=== PATIENT | male | born 1945 | race Caucasian/White ===

== ENCOUNTER 2017-05-10 08:25 | Day surgery (SDC) | payer OTHER, BC ==
[2017-04-25 12:22] VITALS: BMI 24.5
--- NOTE | 2017-05-09 09:24 | HP ---
Satellite [facility] - Chief Complaint Chief Complaint: right knee pain - Past Medical History Allergies/Adverse Reactions: Allergies Allergy/AdvReac Type Severity Reaction Status Date / Time No Known Allergies Allergy Verified 04/25/17 12:01 - Current Medications Current Medications: Home Medications Medication Instructions Recorded Atenolol [Tenormin] 25 mg PO DAILY 04/25/17 Glucosamine/D3/Boswellia Rossana 1 each PO DAILY 04/25/17 [Osteo Bi-Flex Tablet] Losartan Potassium 25 mg PO DAILY 04/25/17 Multivit-Mins/Iron/Folic/Lycop 1 each PO DAILY 04/25/17 [Centrum Men's Tablet] [place]-3 Fatty Acids/Fish Oil [Fish 1 each PO DAILY 04/25/17 Oil 1,000 mg Capsule] Satellite Physical Exam - Physical Examination General Appearance: Well Nourished, Well Developed, Alert & Oriented x3 ENT: Clear Lung: Normal air movement Heart: Regular rate & rhythm Extremities: Other (right knee- +swelling, + ttp medially, decr rom, nvi xrays show grade 4 medial djd) Neurological: Intact, Alert, Oriented Satellite Impression/Plan - Impression/Plan Impression: right knee medial djd Operative Procedure: right medial kimberley ukr Date to be Performed: 05/10/17
[2017-05-10] MEDS ORDERED: GABAPENTIN 300 MG CAPSULE (FP) PO ONE (08:44)
[2017-05-10] MEDS ORDERED: oxyCODONE HCL 10 MG SUSTAINED ACTING TABLET PO ONE (08:44)
[2017-05-10] MEDS ORDERED: CELECOXIB 200 MG CAPSULE PO ONE (08:44)
[2017-05-10] MEDS ORDERED: TRANEXAMIC ACID 1000 MG/10 ML VIAL IVPUSH ONE (08:44)
[2017-05-10] MEDS ORDERED: CEFAZOLIN 2 GM in DEXTROSE 5%-WATER - 50 ML IVPB ONE (08:44)
[2017-05-10] MEDS ORDERED: ROPIVICAINE 0.2%/MORPH PF/KETOROLAC - 51ML DISP.SYRINGE IA ONE ×2 (08:44→10:35)
[2017-05-10] MEDS ORDERED: ONDANSETRON 4 MG/2 ML VIAL ONE (10:33)
[2017-05-10] MEDS ORDERED: DEXAMETHASONE SOD PHOSPHATE 4 MG/1 ML VIAL ONE ×2 (10:33→10:44)
[2017-05-10] MEDS ORDERED: ceFAZolin SODIUM 1 GM VIAL ONE ×2 (10:34→11:47)
[2017-05-10] MEDS ORDERED: PROPOFOL 20 ML ONE (10:34)
[2017-05-10] MEDS ORDERED: THROMBIN (BOVINE) 5,000 UNIT VIAL TP ONE (10:34)
[2017-05-10] MEDS ORDERED: MIDAZOLAM HCL 2 MG/2 ML SINGLE DOSE VIAL ONE (10:43)
[2017-05-10] MEDS ORDERED: ROPIVACAINE HCL 0.5% 30ML VIAL ONE (10:43)
[2017-05-10] MEDS ORDERED: DEXAMETHASONE SOD PHOSPHATE/PF 10 MG/ML SDV ONE (10:48)
[2017-05-10] MEDS ORDERED: TRANEXAMIC ACID 1000 MG/10 ML VIAL ONE (11:55)
[2017-05-10] MEDS ORDERED: oxyCODONE HCL 5 MG TABLET PO PRN (12:50)
[2017-05-10] MEDS ORDERED: ONDANSETRON 4 MG/2 ML VIAL IVPUSH PRN ×2 (12:50→13:21)
[2017-05-10] MEDS ORDERED: LACTATED RINGERS SOLUTION 1,000 ML IV SCH ×2 (13:00→13:30)
[2017-05-10] MEDS ORDERED: ACETAMINOPHEN 325 MG TABLET (FP) PO SCH (13:00)
[2017-05-10] MEDS ORDERED: MAG HYDROX/AL HYDROX/SIMETH 30 ML UNIT-DOSE CUP PO PRN (13:21)
--- NOTE | 2017-05-10 13:23 | OP ---
Operative Note - Note: Operative Date: 05/10/17 (kacy) Pre-Operative Diagnosis: right knee medial djd Operation: right medial kimberley ukr Post-Operative Diagnosis: Same as Pre-op Surgeon: Brock Holguin Flight Information Expediter: Elia Simpson Anesthesiologist/ELECTRICAL ENGINEERING DESIGNER: Pam Vega Anesthesia: Spinal, Local Specimens Removed: bone fragments Estimated Blood Loss (mls): 150 Operative Report Dictated: Yes
--- NOTE | 2017-05-10 13:54 | SPEC ---
DATE OF OPERATION: 05/10/2017 PREOPERATIVE DIAGNOSIS: Degenerative joint disease, right knee. POSTOPERATIVE DIAGNOSIS: Degenerative joint disease, right knee. PROCEDURE: Right medial unicompartmental knee replacement with robotic-assisted navigation (MAKOplasty) and patelloplasty. SURGICAL ATTENDING: Brock Holguin MD TOY DESIGNER: ERIKA Ernst ANESTHESIA: Regional and spinal. CLOSURE: Medial DMITRI components with a 6 femur, 8 tibia, and an 8 polyethylene; No. 1 Vicryl, fascia; 0 and 2-0, subcutaneous; 3-0 Monocryl subcuticular with skin glue for skin; 4-0 undyed Vicryl for pin sites. ESTIMATED BLOOD LOSS: Negligible. COMPLICATIONS: None. CONDITION: To recovery in stable condition. DESCRIPTION OF OPERATIVE PROCEDURE: Patient was taken to the operating room on May 10, 2017. Spinal and regional anesthesia was administered by the anesthesiologist. IV Kefzol and TXA were administered prophylactically prior to the case. A well-padded pneumatic tourniquet was placed on the right proximal thigh. The right lower extremity was prepped and draped in the usual sterile fashion. A 6- to 8-cm longitudinal incision over the medial side of the patella from mid patella to the tibial tubercle was incised and was deepened using Bovie cautery. An arthrotomy was then made just medial to the patellar tendon and the patella. Subperiosteal dissection was done on the anteromedial proximal tibia all the way back to the MCL. Partial fat pad excision was performed, exposing the medial compartment. Checkpoint was malleable at both the femur and the tibia. Using 2 stab incisions in the femur 1 handbreadth above the patella on the femur and 2 stab incisions 1 handbreadth below the tibial tubercle on the tibia, 2 threaded pins were drilled in parallel fashion from anterior to posterior, going through the proximal cortex and engaging the 2nd but not through the 2nd cortex. To these threaded pins were fastened navigation rays, 1 on the femur and 1 on the tibia. The knee was then registered with the navigation device with the center of the rotation of the hip, medial and lateral malleoli, and multiple points both on the femur and on the tibia. Excellent registration of less than 0.5 mm was obtained on both to ensure adequate registration. The navigation device ensured us to "pop the bubbles" both on the femur and the tibia and that was performed and passed registration. The knee was then thoroughly inspected to remove all osteophytes both on the femur and the tibia. Also, osteophytes on the trochlea and on the surface of the patella were removed as well. The knee was then stressed with valgus stress at 0, 30, 60, 90, and 120 degrees of flexion. This propagated a looseness/tightness graft. The virtual positions of the components were then optimized to ensure an excellent graft. The tracking also was optimized by manipulating the virtual position to ensure that the femoral component articulated with the central portion of the tibial component. The robot was then brought into the field and was registered. The robot was used to bur the bone on both the femur and the tibia as to the specifications of the components. The trial components were then applied on both the femur and the tibia with an appropriate polyethylene insert. The knee was taken through a range of motion and found to have full extension, full flexion, with excellent stability. Stressing the graft revealed an excellent looseness/tightness graft with the trial components in place. The trial components were removed. The knee was thoroughly irrigated with a copious amount of antibiotic irrigation. The real components were then cemented in using modern generation cement techniques with antibiotic cement and pressurization. After the cement was hardened, the knee was thoroughly inspected to remove out all excess cement. The real polyethylene insert was then clipped into place. Range of motion and stability were again assessed to be as they were with the trials. At this time, the pins and the checkpoints were removed. The knee was again thoroughly irrigated. The arthrotomy was closed with No. 1 Vicryl, 0 and 2-0 subcutaneous, and 3-0 Monocryl subcuticular with skin glue for the skin, 4-0 undyed Vicryl for the pin sites. Sterile pressure dressing was placed over the knee. Patient awakened from anesthesia and transferred to recovery in stable condition. No complications. Estimated blood loss negligible. X-rays postoperatively revealed excellent position of the components. Mirza [id number]
[2017-05-10] MEDS: oxyCODONE HCL 5 MG TABLET PO PRN ×2 (15:38→21:16)
[2017-05-10] MEDS: ACETAMINOPHEN 325 MG TABLET (FP) PO SCH (20:17)
[2017-05-10] MEDS: GABAPENTIN 300 MG CAPSULE (FP) PO SCH (21:16)
[2017-05-10] MEDS: oxyCODONE HCL 10 MG SUSTAINED ACTING TABLET PO SCH (21:16)
[2017-05-10] MEDS: SENNOSIDES/DOCUSATE COMBO (SENNA PLUS) TABLET (UD) PO SCH (21:16)
[2017-05-10] MEDS: CEFAZOLIN 2 GM/D5W 2 GM/50 ML ML IVPB SCH (21:17)
[2017-05-10] MEDS ORDERED: LOSARTAN POTASSIUM 25 MG TABLET PO SCH (22:00)
[2017-05-11] MEDS: ACETAMINOPHEN 325 MG TABLET (FP) PO SCH ×2 (02:00→08:13)
[2017-05-11] MEDS: CEFAZOLIN 2 GM/D5W 2 GM/50 ML ML IVPB SCH (04:00)
[2017-05-11] MEDS: oxyCODONE HCL 5 MG TABLET PO PRN (05:28)
[2017-05-11 07:00] VITALS: BP 125/75; PULSE 55; TEMP 98.4
[2017-05-11] MEDS ORDERED: ASPIRIN 325 MG TABLET PO SCH (08:00)
--- NOTE | 2017-05-11 08:50 | PN ---
Progress Note (short form) - Note Progress Note: Ortho Pt seen and examined s/p right medial kimberley ukr pod #1 Selected Entries 05/11/17 06:00 Temperature 98.4 F Pulse Rate 55 L Respiratory 18 Rate Blood Pressure 125/75 dressing c/d/i, calf soft, nt rom 0-90, nvi a/p PT dvt ppx pain control d/c home today f/u in 1 week
--- NOTE | 2017-05-11 08:51 | DS ---
Physical Examination Vital Signs: Vital Signs Temperature 98.4 F 05/11/17 06:00 Pulse Rate 55 L 05/11/17 06:00 Respiratory Rate 18 05/11/17 06:00 Blood Pressure 125/75 05/11/17 06:00 O2 Sat by Pulse Oximetry (%) 98 05/11/17 06:00 Discharge Summary Reason For Visit: OSTEOARTHRITIS Procedures: Principal: s/p right medial kimberley ukr Hospital Course: admitted for elective right medial kimberley ukr, uneventful post-op, stable for d/c Condition: Good - Instructions Diet, Activity, Other Instructions: Post-op Instructions-Partial Knee Replacement Call the office for a follow-up appointment in 1 week - [phone] Aspirin 325mg daily for 6 weeks. Pain medication was sent into your pharmacy. Apply Graduated Compression Stockings (TEDs) to both lower extremities- remove daily for hygiene ONLY Apply Sequential Compression Device (SCDs) to both Lower extremities remove for PT and hygiene ONLY Apply cold packs to affected area for 15 minutes every 2 hours. Physical Therapist will come to your home for the first 5 days. You will be set up with outpatient PT at your first post-operative visit. Patient may ambulate as tolerated-encourage self care (at least every 2-3 hours while awake) with walker or cane Maintain Aquacel (waterproof) dressing to operative wound (will be removed by surgeon at first office visit) Shower with Aquacel dressing in place-if Aquacel integrity compromised, remove and apply dry sterile dressing and notify Orthopedist. DO NOT SHOWER unless Orthopedists approves without Aquacel dressing CONTACT THE OFFICE FOR ANY CHANGE IN YOUR CONDITION (for example-fever greater than 102 degrees, excessive bleeding from operative site, purulent drainage, severe swelling or pain) GO TO THE EMERGENCY ROOM IF THERE IS A MEDICAL EMERGENCY Knee Precautions: * Keep a rolled towel under affected heel while in bed or chair (to keep knee in extension) * Keep affected leg elevated except during mealtimes * DO NOT PLACE PILLOW UNDER AFFECTED KNEE * If you have any questions, please do not hesitate to call the office - . Referrals: Brock Holguin MD [Staff Physician] - Disposition: VNS/HOME HEALTH CARE - Home Medications Comprehensive Discharge Medication List: Ambulatory Orders Atenolol [Tenormin] 25 mg PO DAILY 04/25/17 Glucosamine/D3/Boswellia Rossana [Osteo Bi-Flex Tablet] 1 each PO DAILY 04/25/17 Losartan Potassium 25 mg PO HS 04/25/17 Multivit-Mins/Iron/Folic/Lycop [Centrum Men's Tablet] 1 each PO DAILY 04/25/17 [place]-3 Fatty Acids/Fish Oil [Fish Oil 1,000 mg Capsule] 1 each PO DAILY Aspirin [ASA -] 325 mg PO DAILY@0800 tablet 05/10/17 Oxycodone HCl/Acetaminophen [Percocet 5-325 mg Tablet] 1 - 2 tab PO Q6H #50 tab MDD 8 05/10/17
[2017-05-11] MEDS: GABAPENTIN 300 MG CAPSULE (FP) PO SCH (09:08)
[2017-05-11] MEDS: oxyCODONE HCL 10 MG SUSTAINED ACTING TABLET PO SCH (09:08)
[2017-05-11] MEDS: SENNOSIDES/DOCUSATE COMBO (SENNA PLUS) TABLET (UD) PO SCH (09:08)
[2017-05-11] MEDS ORDERED: ATENOLOL 25 MG TABLET (FP) PO SCH (10:00)
[2017-05-11] MEDS ORDERED: MULTIVITAMINS (DAILY MVI) TABLET (FP) PO SCH (10:00)
[2017-05-11] MEDS ORDERED: PANTOPRAZOLE 40 MG TABLET (FP) PO SCH (10:00)
--- NOTE | 2017-05-11 11:20 | PN ---
Progress Note (short form) - Note Progress Note: 71M POD1 s/p R medial knee makoplasty under spinal anesthetic with peripheral nerve blocks for post operative pain. Pt states that pain is well controlled. Reports no anesthetic complications. AVSS. Sensory and motor function intact in bilateral lower extremities. Continue current regimen.
== END 2017-05-11 11:27 | disposition home health service (06) ==
LOC: FASU 08:25 → FM/S 08:44 → FASU 05-11 11:27
PROVIDERS: ATTEND Orthopaedic Surgery
PROC: 8E0YXBZ Computer Assisted Procedure of Lower Extremity (ICD-10-PCS; 2017-05-10)
PROC: 8E0Y0CZ Robotic Assisted Procedure of Lower Extremity, Open Approach (ICD-10-PCS; 2017-05-10)
PROC: 0SRC0L9 Replacement of Right Knee Joint with Medial Unicondylar Synthetic Substitute, Cemented, Open Approach (ICD-10-PCS; principal; 2017-05-10 12:01)
DX: M17.11 Unilateral primary osteoarthritis, right knee (principal)
CPT/HCPCS: 20985; 27446; C1776; S2900; 73560-TC-RT-FY; 94760; 97116-GP; 97162-GP

== ENCOUNTER 2017-11-28 09:52 | Day surgery (SDC) | payer BC, OTHER ==
[2017-11-28 08:37] VITALS: BMI 24.4
[2017-11-28 11:11] VITALS: TEMP 98.4
[2017-11-28 12:09] VITALS: BP 101/67; PULSE 53
--- NOTE | 2017-11-29 14:24 | PATH ---
Surgical Pathology Report Patient Name: ALTAGRACIA LOBO [facility]. Rec. #: [id number] /Age/Gender: 1945 (Age: 72) / M Account: [id number] Location: U-ENDOSCOPY Taken: 11/28/2017 Received: 11/28/2017 Reported: 11/29/2017 Physicians: Kandy Deluca M.D. Specimen(s) Received POLYP SIGMOID Clinical History Screening Postoperative diagnosis: Polyp, diverticulosis Final Diagnosis SIGMOID COLON, POLYP, BIOPSY: POLYPOID COLONIC MUCOSA WITH SMALL LYMPHOID AGGREGATE AND SUPERFICIAL HYPERPLASTIC FEATURES. Electronically Signed Bobbi Alba M.D. Gross Description Received in formalin, labeled "biopsy sigmoid polyp" are 2 lorenz, irregular portions of soft tissue measuring 0.1 and 0.4 cm. in greatest dimension. The specimens are submitted in toto in one cassette. /11/28/2017 saudi11/28/2017
== END 2017-11-28 12:05 | disposition home or self-care (01) ==
LOC: JASU-ENDO 09:52
PROVIDERS: ATTEND Internal Medicine Gastroenterology
PROC: 0DBN8ZZ Excision of Sigmoid Colon, Via Natural or Artificial Opening Endoscopic (ICD-10-PCS; principal; 2017-11-28 10:30)
DX: Z12.11 Encounter for screening for malignant neoplasm of colon (principal); D12.5 Benign neoplasm of sigmoid colon; K57.30 Diverticulosis of large intestine without perforation or abscess without bleeding
CPT/HCPCS: 88305-TC